=== PATIENT | female | born 1990 | race Caucasian/White ===

== ENCOUNTER 2017-02-15 20:13 | Emergency (ER) | payer MEDICAID, OTHER ==
[~2017-02-15] VITALS: Ht 152.4 cm; Wt 45.4 kg
[~2017-02-15 20:13] MED LIST: AMOX500T2 PO; CLIN300C11 PO; DOCU100C37 PO; IBUP-1780 PO; ONDA-42 SL; OXYC-465 PO; PRD20T PO; PREN1TAB71 PO; RT-ALBUINH IH; SULF-222 PO
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
--- OUTSIDE RECORDS SUMMARY | 2017-02-15 20:19 | XMS REPORT ---
Author Author SERAFIN GAMA Organization [employer] Address Unknown Phone Unavailable Care Team Providers Care Sealing Machine Operator Name Role Phone SERAFIN GAMA CP Unavailable Allergies, Adverse Reactions, Alerts Substance Reaction Event Type N.K.D.A. Info Not Available Non Drug Allergy Problems Problem Type Condition Code Onset Dates Condition Status Problem Z33.1 Active Problem Headache R51 Active Problem Acute pharyngitis, unspecified J02.9 Active Assessment Headache R51 Active Assessment Acute pharyngitis, unspecified J02.9 Active Assessment Z33.1 Active Medications Medication Code System Code Instructions Start Date End Date Status Dosage Amoxicillin NDC [address]-26 500 MG Orally every 12 hrs Mar 30, 2015 Apr 06, 2015 1 tablet Pre- NDC 0 not defined Procedures Procedure Coding System Code Date Office Visit, Est Pt., Level 3 CPT-4 25155 Mar 30, 2015 Vital Signs Date/Time: Mar 30, 2015 Temperature 98.3 F Weight 113 lbs Height 60 in BMI 22.07 Index Blood Pressure Diastolic 62 mmHg Blood Pressure Systolic 90 mmHg Cardiac Monitoring Heart Rate 60 bpm Results No Known Results Summary Purpose [employer] Submission
--- OUTSIDE RECORDS SUMMARY | 2017-02-15 20:19 | XMS REPORT ---
Author Author [facility] Medical Staff Organization [facility] Address [address], [place] [address] Phone [phone] Summary purpose TRANSITION OF CARE AUTO GENERATION Chief Complaint and Reason for Visit No authorized Reason for Visit (Admitting Diagnosis) is available for this visit. Problem list No authorized problems tracked for continuity of care are available for this visit. Encounters No authorized problems tracked for encounter diagnoses are available for this visit. Medications No medications recorded for this patient visit Allergies, adverse reactions, alerts Allergen Category Ingredient Status Reaction Severity Onset No known drug allergies No known drug allergies No known drug allergies Confirmed or Verified Immunizations No immunizations recorded for this patient visit Relevant diagnostic tests and/or laboratory data RESULTS Routine Urinalysis [id number]:05:00 Result Normal Range Units Color YELLOW Clarity Clear Specific [place] 1.020 1.003-1.035 pH 5.5 4.5-8.0 Glucose NEGATIVE Bilirubin NEGATIVE Ketones NEGATIVE Protein NEGATIVE Urobilinogen 0.2 0-0.2 E.U./dL Nitrites NEGATIVE Blood NEGATIVE Leukocytes NEGATIVE WBCs No WBC's Seen RBCs No RBC's Seen. Squamous Epithelial Few Amorphous Crystals Few Body Fluid :05:00 Result Normal Range Units pH 5.5 4.5-8.0 History of procedures No procedures recorded for this patient visit. Functional status No functional or cognitive status observations are available for this visit. Vital signs No authorized vital signs are available for this visit. Social history No Social History or smoking status observations were recorded for this visit. ( Unknown if ever smoked.) Treatment Plan No treatment plan text is available for this visit. Hospital discharge instructions No discharge instruction text is available for this visit.
--- OUTSIDE RECORDS SUMMARY | 2017-02-15 20:19 | XMS REPORT ---
Author Author ALLAN SHELLEY [facility] Address [address] [place] [address] Care Team Providers Care Cable Hooker Name Role Phone ALLAN SHELLEY Unavailable PROBLEMS Type Condition ICD9-CM Code NRP59-BW Code Onset Dates Condition Status SNOMED Code Problem Anxiety state F41.1 Active 382811410 Problem Depressive disorder, not elsewhere classified F32.9 Active 26004406 Problem Headache R51 Active 00113678 Problem Acute pharyngitis, unspecified J02.9 Active 300332022 Problem Z33.1 Active 02565309 ALLERGIES Unknown Allergies SOCIAL HISTORY No smoking Hx information available PLAN OF CARE VITAL SIGNS MEDICATIONS Medication Instructions Dosage Frequency Start Date End Date Duration Status Amoxicillin 500 MG Orally 3 times a day 1 capsule 8h Jan, 8 Feb, 2016 10 day(s) Active RESULTS No Results PROCEDURES No Known procedures IMMUNIZATIONS No Known Immunizations
--- OUTSIDE RECORDS SUMMARY | 2017-02-15 20:19 | XMS REPORT ---
Author Author SCHUYLER PAGE [facility] [employer] Address Unknown Phone Unavailable Care Team Providers Care Welt Rander Name Role Phone SCHUYLER PAGE CP Unavailable Allergies, Adverse Reactions, Alerts Substance Reaction Event Type N.K.D.A. Info Not Available Non Drug Allergy Problems Problem Type Condition Code Onset Dates Condition Status Problem Z33.1 Active Problem Headache R51 Active Problem Acute pharyngitis, unspecified J02.9 Active Assessment 26 weeks gestation of Z3A.26 Active Assessment Seasonal allergies J30.2 Active Medications Medication Code System Code Instructions Start Date End Date Status Dosage Claritin NDC [address]-37 10 MG Orally Once a day Apr 22, 2015 May 22, 2015 1 tablet Pre-Emelyn NDC 0 not defined Procedures Procedure Coding System Code Date Office Visit, Est Pt., Level 3 CPT-4 31115 Apr 22, 2015 MEASURE BLOOD OXYGEN LEVEL CPT-4 66739 Apr 22, 2015 Vital Signs Date/Time: Apr 22, 2015 Temperature 97.7 F Weight 120.2 lbs Height 60 in Oximetry 98 % Blood Pressure Diastolic 62 mmHg Blood Pressure Systolic 96 mmHg Cardiac Monitoring Heart Rate 85 bpm BMI 23.47 Index Results No Known Results Summary Purpose [employer] Submission
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
[2017-02-15] MEDS ORDERED: TETANUS,DIPTH,PERTUSS P/F (BOOSTRIX) 0.5 ML VIAL IM STA (21:21)
[2017-02-15] MEDS ORDERED: CYCLOBENZAPRINE 10 MG (FLEXERIL) TAB PO STA (21:21)
[2017-02-15] MEDS ORDERED: HYDROcodone/APAP 5 MG/325 MG (LORTAB) TAB PO STA (21:21)
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
[2017-02-15] MEDS ORDERED: CYCL10TA9 PO (21:53)
[2017-02-15] MEDS ORDERED: TRAM50TA2 PO (21:53)
[2017-02-15] MEDS ORDERED: ONDA8TAB13 PO (21:59)
[2017-02-15 22:03] VITALS: BP 116/65
== END 2017-02-15 22:03 | disposition home or self-care (01) ==
LOC: EDUNIT# 20:13 → ER 20:15
DX: S80.02XA Contusion of left knee, initial encounter (principal); S80.01XA Contusion of right knee, initial encounter; F17.210 Nicotine dependence, cigarettes, uncomplicated; V43.52XA Car driver injured in collision with other type car in traffic accident, initial encounter
CPT/HCPCS: 90471; 90715; 99284